=== PATIENT | female | born 1965 | race Caucasian/White ===

== ENCOUNTER 2018-10-18 17:28 | Emergency (ER) | payer BC ==
[~2018-10-18] VITALS: Ht 213.4 cm; Wt 78.0 kg
[2018-10-18 17:35] VITALS: BP 145/83
[2018-10-18] MEDS ORDERED: ketorolac trometh. 30mg/ml inj. IM ONE (18:35)
== END 2018-10-18 19:12 | disposition home or self-care (01) ==
LOC: ER 17:29
DX: G89.29 Other chronic pain (principal); N30.10 Interstitial cystitis (chronic) without hematuria; Z76.0 Encounter for issue of repeat prescription; Z88.8 Allergy status to other drugs, medicaments and biological substances; Z87.448 Personal history of other diseases of urinary system
CPT/HCPCS: 96372; 99283; J1885